=== PATIENT | male | born 1995 | race American Indian/Alaskan Native ===

== ENCOUNTER 2016-08-22 13:23 | Emergency (ER) | payer OTHER ==
[2016-08-22 13:35] VITALS: BP 134/88
== END 2016-08-22 13:45 | disposition left against medical advice (07) ==
LOC: ED 13:23
DX: K61.0 Anal abscess (principal); R10.2 Pelvic and perineal pain; R50.9 Fever, unspecified; Z53.21 Procedure and treatment not carried out due to patient leaving prior to being seen by health care provider